=== PATIENT | male | born 1970 | race Caucasian/White ===

== ENCOUNTER 2023-07-02 18:28 | Inpatient (IN) | payer OTHER ==
[~2023-07-02] VITALS: Ht 172.7 cm; Wt 81.4 kg
[2023-07-02] MEDS ORDERED: hydrALAZINE 20MG/ML 1ML VIAL IV ONE (19:25)
[2023-07-02] MEDS ORDERED: NS 1,000 ML IV ONE (19:25)
[2023-07-02] MEDS ORDERED: ISOVUE-370 76% 100ML VIAL As Ordered ONE (19:28)
[2023-07-02 19:37] LABS: BASO # 0.1 10^3/uL (0.0-0.2); BASO % 0.8 % (0.0-1.0); EOS # 0.3 10^3/uL (0.0-0.5); EOS % 1.8 % (0.0-3.0); HEMATOCRIT 44.5 % (42.0-52.0); HEMOGLOBIN 15.6 g/dl (13.5-17.5); LYMPH # 3.3 10^3/uL (1.5-5.0); LYMPH % 19.2 % (24.0-44.0); MEAN CORPUSCULAR HEMOGLOBIN 31.9 pg (27.0-33.0); MEAN CORPUSCULAR HGB CONC 35.1 g/dl (32.0-36.5); MONO # 1.3 10^3/uL (0.0-0.8); MONO % 7.8 % (2.0-8.0); NEUTROPHILS # 12.1 10^3/uL (1.5-8.5); NEUTROPHILS % 70.1 % (36.0-66.0); PLATELET COUNT, AUTOMATED 361 10^3/uL (150-450); RED BLOOD COUNT 4.89 10^6/uL (4.30-6.10); WHITE BLOOD COUNT 17.3 10^3/uL (4.0-10.0)
[2023-07-02 19:52] LABS: INR 1.06; PARTIAL THROMBOPLASTIN TIME 32.5 SECONDS (24.8-34.2); PROTHROMBIN TIME 13.5 SECONDS (12.5-14.5)
[2023-07-02 20:03] VITALS: BP 186/105; TEMP 98.9; O2SAT 96
[2023-07-02] MEDS ORDERED: ASPIRIN 81MG CHEW TABLET PO ONE (20:05)
[2023-07-02] MEDS ORDERED: niCARdipine IV 40 MG in IV 1 EA IV SCH ×2 (20:05→21:07)
[2023-07-02] MEDS ORDERED: IBUP80TA PO (20:39)
[2023-07-02] MEDS ORDERED: PERI12LIQ SSP (20:39)
[2023-07-02] MEDS ORDERED: HOME MED LIST COMPLETE! XX SCH (20:40)
[2023-07-02] MEDS ORDERED: SIMVASTATIN 40 MG TAB PO ONE (20:40)
[2023-07-02] MEDS ORDERED: MOM 30ML SUSPENSION UDC PO PRN (21:15)
[2023-07-02] MEDS ORDERED: ACETAMINOPHEN TAB 650MG DOSE (2X325MG) PO PRN (21:15)
[2023-07-02 23:20] VITALS: BP 149/85; TEMP 97.8; O2SAT 94
[2023-07-02 23:38] LABS: ALKALINE PHOSPHATASE 72 U/L (46-116); ALT/SGPT 21 U/L (7.0-40); AST/SGOT 17 U/L (<34); BILIRUBIN,TOTAL 0.6 MG/DL (0.3-1.2); BLOOD UREA NITROGEN 16 MG/DL (9-23); CALCIUM LEVEL 9.3 MG/DL (8.5-10.1); CARBON DIOXIDE LEVEL 23 MMOL/L (20-31); CHLORIDE LEVEL 105 MMOL/L (98-107); CREATININE FOR GFR 0.67 MG/DL (0.70-1.30); GLOMERULAR FILTRATION RATE > 60.0 (>56); GLUCOSE, FASTING 94 MG/DL (60-100); POTASSIUM SERUM 3.8 MMOL/L (3.5-5.1); SODIUM LEVEL 138 MMOL/L (136-145)
[2023-07-02 23:56] LABS: HEMOGLOBIN A1c 4.7 % (4.0-6.0)
[2023-07-03] VITALS (8 sets, daily range): BP systolic 117–147; BP diastolic 75–92; TEMP 96.7–98.4; O2SAT 93–96
[2023-07-03 06:31] LABS: HEMATOCRIT 45.3 % (42.0-52.0); HEMOGLOBIN 15.6 g/dl (13.5-17.5); MEAN CORPUSCULAR HEMOGLOBIN 31.6 pg (27.0-33.0); MEAN CORPUSCULAR HGB CONC 34.4 g/dl (32.0-36.5); MEAN CORPUSCULAR VOLUME 91.9 fl (80.0-96.0); PLATELET COUNT, AUTOMATED 327 10^3/uL (150-450); RED BLOOD COUNT 4.93 10^6/uL (4.30-6.10); WHITE BLOOD COUNT 12.8 10^3/uL (4.0-10.0)
[2023-07-03 06:47] LABS: BLOOD UREA NITROGEN 13 MG/DL (9-23); CALCIUM LEVEL 9.2 MG/DL (8.5-10.1); CARBON DIOXIDE LEVEL 26 MMOL/L (20-31); CHLORIDE LEVEL 105 MMOL/L (98-107); CREATININE FOR GFR 0.76 MG/DL (0.70-1.30); GLOMERULAR FILTRATION RATE > 60.0 (>56); GLUCOSE, FASTING 106 MG/DL (60-100); POTASSIUM SERUM 3.9 MMOL/L (3.5-5.1); SODIUM LEVEL 141 MMOL/L (136-145)
[2023-07-03] MEDS ORDERED: hydrALAZINE 20MG/ML 1ML VIAL IV PRN (06:55)
[2023-07-03 07:21] LABS: CHOLESTEROL LEVEL 225 MG/DL (<200); LDL CHOLESTEROL 159.2 MG/DL (<100); TRIGLYCERIDES LEVEL 104 MG/DL (<150)
[2023-07-03] MEDS ORDERED: ATORVASTATIN 20 MG TAB PO SCH (09:00)
[2023-07-03] MEDS ORDERED: CAPTOpril 6.25 MG PER 1/2 TABLET PO SCH (09:00)
[2023-07-03] MEDS ORDERED: CHLORTHALIDONE 25 MG TAB PO SCH (09:00)
[2023-07-03] MEDS: DOCUSATE SODIUM 100MG CAPSULE PO SCH ×2 (09:29→20:30)
[2023-07-03] MEDS: ENOXAPARIN 40MG/0.4ML SYRINGE (J1650 PER 10MG) SC SCH (09:29)
[2023-07-03] MEDS: ASPIRIN 81MG CHEW TABLET PO SCH (09:29)
[2023-07-03] MEDS: amLODIPine 5 MG TAB PO SCH (12:21)
[2023-07-04 00:25] VITALS: BP 116/73; TEMP 97.8; O2SAT 96
[2023-07-04 04:57] VITALS: BP 112/68; TEMP 97.8; O2SAT 94
[2023-07-04 05:53] LABS: BASO # 0.1 10^3/uL (0.0-0.2); BASO % 0.8 % (0.0-1.0); EOS # 0.4 10^3/uL (0.0-0.5); EOS % 3.8 % (0.0-3.0); HEMATOCRIT 44.8 % (42.0-52.0); HEMOGLOBIN 15.2 g/dl (13.5-17.5); LYMPH # 3.5 10^3/uL (1.5-5.0); LYMPH % 30.7 % (24.0-44.0); MEAN CORPUSCULAR HEMOGLOBIN 31.7 pg (27.0-33.0); MEAN CORPUSCULAR HGB CONC 33.9 g/dl (32.0-36.5); MEAN CORPUSCULAR VOLUME 93.3 fl (80.0-96.0); MONO # 0.9 10^3/uL (0.0-0.8); MONO % 8.1 % (2.0-8.0); NEUTROPHILS # 6.5 10^3/uL (1.5-8.5); NEUTROPHILS % 56.2 % (36.0-66.0); PLATELET COUNT, AUTOMATED 313 10^3/uL (150-450); WHITE BLOOD COUNT 11.5 10^3/uL (4.0-10.0)
[2023-07-04 06:21] LABS: BLOOD UREA NITROGEN 13 MG/DL (9-23); CALCIUM LEVEL 8.7 MG/DL (8.5-10.1); CARBON DIOXIDE LEVEL 25 MMOL/L (20-31); CHLORIDE LEVEL 110 MMOL/L (98-107); CREATININE FOR GFR 0.77 MG/DL (0.70-1.30); GLOMERULAR FILTRATION RATE > 60.0 (>56); GLUCOSE, FASTING 93 MG/DL (60-100); POTASSIUM SERUM 4.3 MMOL/L (3.5-5.1); SODIUM LEVEL 142 MMOL/L (136-145)
[2023-07-04 07:58] VITALS: BP 120/80; TEMP 97.6; O2SAT 96
[2023-07-04] MEDS ORDERED: ATORVASTATIN 20 MG TAB PO SCH (09:00)
[2023-07-04] MEDS: DOCUSATE SODIUM 100MG CAPSULE PO SCH (09:00)
[2023-07-04] MEDS: ASPIRIN 81MG CHEW TABLET PO SCH (09:31)
[2023-07-04] MEDS: ENOXAPARIN 40MG/0.4ML SYRINGE (J1650 PER 10MG) SC SCH (09:31)
[2023-07-04 09:32] VITALS: BP 120/80
[2023-07-04] MEDS: amLODIPine 5 MG TAB PO SCH (09:32)
[2023-07-04] MEDS ORDERED: ATOR80TA59 PO (10:24)
[2023-07-04] MEDS ORDERED: LISI10TA22 PO (10:24)
[2023-07-04] MEDS ORDERED: AMLO1TAB24 PO (10:24)
[2023-07-04] MEDS ORDERED: ECOT81TA5 PO ×2 (10:24→11:14)
[2023-07-04 11:47] VITALS: BP 116/74; TEMP 97.6; O2SAT 99
== END 2023-07-04 12:06 | disposition home or self-care (01) | DRG 45 ==
LOC: M ED 18:28 → M ED INP 21:13 → M PCU 23:13
PROVIDERS: ADMIT Student in an Organized Health Care Education/Training Program; ATTEND Internal Medicine
PROC: B246ZZZ Ultrasonography of Right and Left Heart (ICD-10-PCS; principal; 2023-07-03)
DX: I63.542 Cerebral infarction due to unspecified occlusion or stenosis of left cerebellar artery (principal); I10 Essential (primary) hypertension; R47.1 Dysarthria and anarthria; R29.810 Facial weakness; F10.11 Alcohol abuse, in remission; Z87.891 Personal history of nicotine dependence; D72.829 Elevated white blood cell count, unspecified; I16.9 Hypertensive crisis, unspecified; I65.23 Occlusion and stenosis of bilateral carotid arteries

== ENCOUNTER → 2023-08-09 | Outpatient (RCR) | payer OTHER ==
[~2023-08-09] MED LIST: AMLO1TAB24 PO; ATOR80TA59 PO; ECOT81TA5 PO; IBUP80TA PO; LISI10TA22 PO; PERI12LIQ SSP
== END ==
LOC: M ST 07-26 13:31 → M OT 07-30 13:00 → M PT 09:25
PROVIDERS: ATTEND Internal Medicine
DX: I63.9 Cerebral infarction, unspecified (principal); R13.10 Dysphagia, unspecified

== ENCOUNTER 2023-09-06 08:51 | Outpatient (RCR) | payer OTHER | END 2023-09-09 | LOC: M PT 08:51 | PROVIDERS: ATTEND Internal Medicine | DX: I69.361 Other paralytic syndrome following cerebral infarction affecting right dominant side (principal) ==